=== PATIENT | male | born 1985 | race Caucasian/White ===

== ENCOUNTER 2020-11-28 13:24 | Emergency (ER) | payer OTHER, SELFPAY ==
--- NOTE | 2020-11-28 13:00 | EKG12_ITS ---
Test Reason : CP Blood Pressure : / mmHG Vent. Rate : 096 BPM Atrial Rate : 096 BPM P-R Int : 156 ms QRS Dur : 086 ms QT Int : 348 ms P-R-T Axes : 059 040 033 degrees QTc Int : 439 ms Normal sinus rhythm Low voltage QRS (Limb Leads) Confirmed by MORELIA RAMÍREZ, JOSE ([id number]), editorial writer MANE MON ([id number]) on 11/30/2020 9:36:42 AM Referred By: OLIVERIO/NICHELLE Confirmed By:JOSE THIBODEAUX MD
[2020-11-28 13:25] VITALS: BP 133/95; PULSE 99; RESP 13; TEMP 37.1; O2SAT 96; BMI 32.8
--- NOTE | 2020-11-28 14:10 | RAD_ITS ---
STUDY: X-RAY CHEST REASON FOR EXAM: Male, 35 years old. Chest pain with deep inspiration. TECHNIQUE: Single AP portable view of the chest. COMPARISON: None. FINDINGS: EKG electrodes are seen. The lungs are clear and expanded. There is no demonstrated pleural abnormality. Normal size heart. Normal mediastinum and ross. Normal visualized pulmonary arteries. Normal visualized aortic arch and descending thoracic aorta. Normal visualized thoracic spine. Normal visualized ribs, clavicles, and shoulders. There is no demonstrated abnormality of the visualized soft tissue structures of the upper abdomen. RAD/Chest 1 View (Portable) IMPRESSION: Normal x-ray examination of the chest. Electronically Signed: Hector Connors, at 14:24 EST , Service support ,
[2020-11-28] MEDS: Ketorolac 60 MG/2 ML Vial IM (14:12)
--- NOTE | 2020-11-28 14:41 | ED.VISSUMM ---
- ER Visit Summary Date of Service: 11/28/20 Chief Complaint: Chest pain History of Present Illness: The patient is a 35 M who presents with chest pain that began today. Patient states it is gradually gotten worse throughout the day. Patient describes her pain is sharp and aching. Patient states the pain has been constant. Patient states the pain is localized to the left side of his chest. Patient states it is worse with deep breathing. Patient states it is better when he exhales. Patient denies any fevers or chills. Patient denies any cough. Patient states he does not feel short of breath it just hurts to take a deep breath. Patient denies any palpitations. Patient denies any nausea or vomiting. Physical Examination: Vital signs are stable. Patient is afebrile. Patient is in no acute distress. Oral mucosa is pink and moist. Neck is supple. Trachea is midline. There is no JVD noted. Heart was regular rate and rhythm. Lungs are clear and equal bilaterally. Abdomen is soft. Bowel sounds are normal. There is no tenderness. There is no rebound or guarding noted. Skin is warm dry. Cranial nerves II through XII are intact. There are no focal motor or sensory deficits noted. Extremities are intact. There is no calf tenderness or edema. Test Results: Portable 1 view chest x-ray was obtained. On my interpretation, lung east are clear. There is normal cardiac silhouette. Bony thorax is normal. There is no acute process noted. Radiologist also interpreted the x-ray and agrees. Emergency Department Course and Treatment: Patient was given an injection of Toradol. Patient is feeling better on reevaluation. Patient was given a prescription for Naprosyn. Patient was instructed to follow-up with his primary care physician in 5 to 7 days. Patient understood and was agreeable with the plan. All questions were answered. Disposition: Discharge home Impression: 1. Pleurisy This note was generated with [employer] dictation software. It may contain incorrect words, spelling, and punctuation that were not noted in review of the chart prior to signing ED Disposition - Plan for ED Patient: Disposition: Home or Assisted Living Diagnosis: Pleurisy Instructions: ED Pleurisy Referrals: Alyssa Berg DO [Primary Care Provider] - 3-5 Days
[2020-11-28 14:56] VITALS: BP 118/82; PULSE 88; RESP 24; O2SAT 94
== END 2020-11-28 14:57 | disposition home or self-care (01) ==
PROVIDERS: Emergency Provider Emergency Medicine
DX: R09.1 Pleurisy (principal)
CPT/HCPCS: 71045; 93005; 96372; 99282